=== PATIENT | male | born 1960 | race Caucasian/White ===

== ENCOUNTER 2021-02-08 02:50 | Emergency (ER) | payer BC, SELFPAY ==
--- NOTE | 2021-02-08 04:40 | EDPHYS ---
Physician Documentation [facility] Name: George Summers Age: 60 yrs Sex: Male : 1960 Arrival Date: 02/08/2021 Time: 02:52 Bed DIS2 Private MD: ED Physician Chapincito Brewer HPI: 02/08 04:34 This 60 yrs old Male presents to ER via Ambulatory with complaints of Rash - pkl PAINFUL. 04:34 The patient's rash thought to be caused by an unknown cause. The rash is located on the pkl abdomen. The rash can be described as erythematous. Onset: The symptoms/episode began/occurred yesterday. Associated signs and symptoms: Pertinent positives: itching. Historical: - Allergies: 03:30 Codeine; bb 03:30 PENICILLINS; bb - Immunization history:: Adult Immunizations up to date, Client reports receiving the 2nd dose of the Covid vaccine. - Social history:: Smoking status: Patient denies any tobacco usage or history of. ROS: 04:35 Eyes: Negative for injury, pain, redness, and discharge, ENT: Negative for injury, pkl pain, and discharge, Neck: Negative for injury, pain, and swelling, Cardiovascular: Negative for chest pain, palpitations, and edema, Respiratory: Negative for shortness of breath, cough, wheezing, and pleuritic chest pain, Abdomen/GI: Negative for abdominal pain, nausea, vomiting, diarrhea, and constipation, Back: Negative for injury and pain, : Negative for injury, bleeding, discharge, and swelling, MS/Extremity: Negative for injury and deformity. 04:35 Skin: Positive for rash, of the abdomen. 04:35 Neuro: Negative for altered mental status, loss of consciousness. Exam: 04:35 Head/Face: Normocephalic, atraumatic. Eyes: Pupils equal round and reactive to light, pkl extra-ocular motions intact. Lids and lashes normal. Conjunctiva and sclera are non-icteric and not injected. Cornea within normal limits. Periorbital areas with no swelling, redness, or edema. ENT: Nares patent. No nasal discharge, no septal abnormalities noted. Tympanic membranes are normal and external auditory canals are clear. Oropharynx with no redness, swelling, or masses, exudates, or evidence of obstruction, uvula midline. Mucous membranes moist. Neck: Trachea midline, no thyromegaly or masses palpated, and no cervical lymphadenopathy. Supple, full range of motion without nuchal rigidity, or vertebral point tenderness. No Meningismus. Chest/axilla: Normal chest wall appearance and motion. Nontender with no deformity. No lesions are appreciated. Cardiovascular: Regular rate and rhythm with a normal S1 and S2. No gallops, murmurs, or rubs. Normal PMI, no JVD. No pulse deficits. Respiratory: Lungs have equal breath sounds bilaterally, clear to auscultation and percussion. No rales, rhonchi or wheezes noted. No increased work of breathing, no retractions or nasal flaring. Back: No spinal tenderness. No costovertebral tenderness. Full range of motion. Male : Normal genitalia with no discharge or lesions. 04:35 Skin: rash can be described as erythematous, on the abdomen. 04:35 Neuro: Orientation: is normal, Mentation: is normal, Cranial nerves: grossly normal, Motor: is normal. Vital Signs: 03:28 BP 137 / 94; Pulse 81; Resp 16 S; Temp 98.1(O); Pulse Ox 98% on R/A; Weight 90.72 kg bb (R); Height 5 ft. 7 in. (170.18 cm) (R); Pain 8/10; 03:28 Body Mass Index 31.32 (90.72 kg, 170.18 cm) bb MDM: 04:29 Patient medically screened. pkl 04:35 Data reviewed: vital signs, nurses notes. pkl Administered Medications: 04:42 Drug: Decadron (dexamethasone) 10 mg Route: IM; Site: left gluteus; ak2 Disposition Summary: 02/08/21 04:39 Discharge Ordered Location: Home pkl Problem: new pkl Symptoms: are unchanged pkl Condition: Stable pkl Diagnosis - Contact dermatitis pkl Followup: pkl - With: Private Physician - When: 2 - 3 days - Reason: Re-evaluation by your physician Discharge Instructions: - Discharge Summary Sheet pkl Forms: - Medication Reconciliation Form pkl - Thank You Letter pkl - Antibiotic Education pkl - Prescription Opioid Use pkl Prescriptions: - Prednisone 20 mg Oral Tablet - take 1 tablet by ORAL route once daily for 5 days; 5 tablet; Refills: 0, pkl Product Selection Permitted Signatures: Chapincito Brewer MD MD pkl Danielle Escobar, RN RN bb Darius Esparza
--- NOTE | 2021-02-08 04:40 | ER ---
Nurse's Notes [facility] Name: George Summers Age: 60 yrs Sex: Male : 1960 Arrival Date: 02/08/2021 Time: 02:52 Bed DIS2 Private MD: Diagnosis: Contact dermatitis Presentation: 02/08 03:28 Chief complaint: Patient states: he was sunburned on his abdomen about 3 weeks ago and bb now it is hurting-stinging and itching has taken benadryl and used cortisone cream but it is not helping. Coronavirus screen: At this time, the client does not indicate any symptoms associated with coronavirus-19. Ebola Screen: No symptoms or risks identified at this time. Initial Sepsis Screen: Does the patient meet any 2 criteria? No. Patient's initial sepsis screen is negative. Does the patient have a suspected source of infection? No. Patient's initial sepsis screen is negative. Risk Assessment: Do you want to hurt yourself or someone else? Patient reports no desire to harm self or others. Onset of symptoms was February 08, 2021. 03:28 Method Of Arrival: Ambulatory 03:28 Acuity: LIZZ 5 bb Triage Assessment: 03:30 General: Appears in no apparent distress. Behavior is calm, cooperative. Pain: bb Complains of pain in abdomen Pain currently is 8 out of 10 on a pain scale. Neuro: Level of Consciousness is awake, alert, obeys commands, Oriented to person, place, time, situation. Cardiovascular: Capillary refill < 3 seconds Patient's skin is warm and dry. Respiratory: Respiratory effort is even, unlabored, Respiratory pattern is regular. GI: Abdomen is round. Derm: Skin is pink, warm \T\ dry. Rash noted that is red. Musculoskeletal: Circulation, motion, and sensation intact. Historical: - Allergies: 03:30 Codeine; bb 03:30 PENICILLINS; bb - Immunization history:: Adult Immunizations up to date, Client reports receiving the 2nd dose of the Covid vaccine. - Social history:: Smoking status: Patient denies any tobacco usage or history of. Screenin:12 Abuse screen: Denies threats or abuse. Nutritional screening: No deficits noted. bb Tuberculosis screening: No symptoms or risk factors identified. Fall Risk None identified. Assessment: 04:12 Reassessment: No changes from previously documented assessment. Patient is alert, bb oriented x 3, equal unlabored respirations, skin warm/dry/pink. see triage assessment. Vital Signs: 03:28 BP 137 / 94; Pulse 81; Resp 16 S; Temp 98.1(O); Pulse Ox 98% on R/A; Weight 90.72 kg bb (R); Height 5 ft. 7 in. (170.18 cm) (R); Pain 8/10; 03:28 Body Mass Index 31.32 (90.72 kg, 170.18 cm) ED Course: 02:52 Patient arrived in ED. wm 03:30 Triage completed. bb 03:30 Arm band placed on Patient placed in waiting room, Patient notified of wait time. bb 04:12 Danielle Escobar, RN is Primary Nurse. bb 04:12 Patient has correct armband on for positive identification. bb 04:29 Chapincito Brewer MD is Attending Physician. pkl 04:49 Patient did not have IV access during this emergency room visit. ak2 Administered Medications: 04:42 Drug: Decadron (dexamethasone) 10 mg Route: IM; Site: left gluteus; ak2 Outcome: 04:39 Discharge ordered by . pkl 04:49 Discharged to home ambulatory. ak2 04:49 Condition: good 04:49 Discharge instructions given to patient. 04:49 Patient left the ED. ak2 Signatures: Chapincito Brewer MD MD pkDanielle Aguilar, RN RN Darius Ruelas ak2 Genesis Pepper
[2021-02-08 04:57] VITALS: BP 137/94; TEMP 98.1; O2SAT 98
[2021-02-08] MEDS ORDERED: dexAMETHasone 10 MG/ML VIAL ONE (05:01)
== END 2021-02-08 04:49 | disposition home or self-care (01) ==
LOC: ER 02:50
DX: L25.9 Unspecified contact dermatitis, unspecified cause (principal); Z88.0 Allergy status to penicillin; Z88.5 Allergy status to narcotic agent
CPT/HCPCS: J1100